=== PATIENT | male | born 1970 | race Caucasian/White ===

== ENCOUNTER 2021-12-28 15:21 | Emergency (ER) | payer MEDICAID, SELFPAY ==
[2021-12-28 15:22] VITALS: BP 113/80; PULSE 71; RESP 22; TEMP 36.6; BMI 22.5
--- NOTE | 2021-12-28 15:28 | EDS_ITS ---
HPI History of Present Illness Chief Complaint: Headache Detail of Chief Complaint: Headache with nausea and vomiting Informant: patient Onset/Context/Timing Onset: Yesterday Context: Sudden Onset Timing: Intermittent Quality: Bilateral headache with vomiting that started yesterday Location: [place] Current Severity: Gone Maximum Severity: Severe Worsened by: Vomiting and coughing Relieved by: Nothing specific Associated Symptoms Associated Symptoms: Nausea and vomiting with decreased appetite Narrative Narrative: Patient is a 51-year-old male present on no medications who presents with nausea and vomiting started last night. He headache is associated with nausea and vomiting. States the headache was severe last evening. He presently does not have a headache. He also developed a headache when he coughs. His cough is nonproductive. He denies fever, chills night sweats. He denies contact with anyone that is been ill. He denies double vision, blurred vision or loss of vision. Denies rhinorrhea, congestion postnasal drainage. Denies sore throat. He denies chest pain. He does admit to smoking. He denies alcohol use. He d enies black or maroon-colored stool. He denies orthostatic symptoms. Prior similar symptoms: No Recent Illness/Hospitalization: No PFSH PFSH Medical History no medical history no medical history Home Medications NK 12/28/21 [History Last Taken Unknown] Allergy/AdvReac Type Severity Reaction Status Date / Time No Known Allergies Allergy Verified 09/11/15 18:00 Social History (Updated 12/28/21 @ 15:[address] Juan Vieyra MD) household members: none Smoking Status: Current every day smoker tobacco type: cigarettes substance use type: does not use ROS ROS ED Constitutional Constitutional ED: Denies chills, fever(s), subjective, sweats or weight loss Eyes Eyes: Denies blurry vision, change in vision or diplopia ENT ENT ED: Denies ear pain, rhinorrhea or sore throat Cardiovascular Cardiovascular: Denies chest pain, orthopnea, palpitations, paroxysmal nocturnal dyspnea or racing heartbeat Respiratory/Chest Respiratory/Chest: Denies cough, dyspnea, dyspnea on exertion, orthopnea or paroxysmal nocturnal dyspnea Gastrointestinal Gastrointestinal: Reports nausea and vomiting; Denies abdominal pain, constipation, diarrhea or melena Genitourinary Genitourinary ED: Denies dysuria, hematuria or urinary frequency Musculoskeletal Musculoskeletal: Denies arthralgias, back pain, myalgias or neck pain Integumentary Denies abscess, Abrasions or rash Neurologic Neurologic: Reports headache(s); Denies paresthesias or weakness Endocrine Endocrinology: Denies cold intolerance, heat intolerance, polydipsia or polyphagia Hematologic/Lymphatic Hematologic/Lymphatic: Denies easy bruising or lymphadenopathy EXAM Physical Exam Const Vital Signs: 12/28/21 15:22 Temperature 97.8 F Temperature Source Oral Pulse Rate 71 Respiratory Rate 22 H Blood Pressure 113/80 Blood Pressure Mean 91 Oxygen Delivery Method Room Air Positive well developed and unkempt General Appearance ED: unkempt, well developed and NAD; Negative for cyanotic, diaphoretic or pallor HEENT Reports TM's clear and dry mucous membranes Negative for trauma or tenderness Tympanic Membrane ED: Yes TM's clear Mouth ED: Yes dry mucous membranes Mouth: dry mucous membranes Eyes PERRL and EOMs intact bilaterally General Eye ED: Negative for pale conjunctiva or scleral icterus Neck no lymphadenopathy, supple and no JVD Chest Wall inspection of chest normal and palpation of chest normal Resp normal respiratory effort and clear to auscultation bilaterally Cardio regular rate, regular rhythm, S1 normal heart sound, S2 normal heart sound and no murmurs GI normal to inspection, nondistended, normoactive bowel sounds, non-tender, non- distended and no masses; Negative for hepatosplenomegaly Back/Spine no CVA tenderness Cervical Spine: Negative for cervical spine tenderness Thoracic Spine / Upper Back: Negative for thoracic spinal tenderness Lumbar Spine / Lower Back: Negative for lumbar spinal tenderness Extremity normal to inspection Neuro oriented x3, CN's II-XII intact bilaterally and no sensory deficits noted Sensorium / Orientation: alert Motor Exam: strength 5/5 throughout Psych mental status grossly normal Appearance: unkempt Skin no rashes or lesions noted, no wounds and skin turgor normal Skin Narrative: Patient has abnormal appearing left heel compared to right due to prior calcaneal fracture. 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 General Skin Exam: Negative for jaundice or pallor Lesions: No lesion noted Trauma: Negative for abrasion MDM MDM MDM Narrative Medical decision making narrative: Suspect patient has viral illness with nausea vomiting. Clinically is dehydrated. IV was established and he will receive 1 L of normal saline. Zofran for his persistent nausea. BMP to assess electrolytes and renal function. Patient reports marked improvement. He would like to go home. Lab Data Attestation: I reviewed the patient's lab results. Lab results narrative: Basic metabolic panel is unremarkable. Urine is remarkable for ketones. There is also urobilinogen noted. There is no bilirubin. Microscopic is unremarkable. Labs: Laboratory Results - last 24 hr 12/28/21 12/28/21 15:40 17:25 Sodium 138 Potassium 4.0 Chloride 106 Carbon Dioxide 27.0 Anion Gap 5 BUN 11 Creatinine 0.89 Estim Creat Clear Calc 103.95 Est GFR (MDRD) Af Amer 116 Est GFR (MDRD) Non-Af 96 BUN/Creatinine Ratio 12.3 Glucose 95 Calcium 8.6 Urine Color Yellow Urine Clarity Clear Urine pH 7.0 Ur Specific [place] 1.010 Urine Protein 15 H Urine Glucose (UA) Normal Urine Ketones 15 H Urine Occult Blood Negative Urine Nitrite Negative Urine Bilirubin Negative Urine Urobilinogen 8 H Ur Leukocyte Esterase 25 H Urine RBC 0 SEEN Urine WBC 0-5 SEEN Ur Squamous Epith Cells 0 SEEN Urine Bacteria 0 SEEN Urine Mucus 0 SEEN Discharge Plan Triage Chief Complaint: Headache ED Provider: Juan Vieyra Dx/Rx/DC Orders Clinical Impression: Nausea & vomiting, Dehydration, moderate, Ketosis Instructions: ED Vomiting (Adult) Prescriptions: No Action NK Primary Care Provider: Care Physician,No Primary Referrals: Care Physician,No Primary [Primary Care Provider] - Doctor,Your [STAFF PHYSICIAN] - 3-5 Days if not improving Disposition Disposition: Home, Self Care
[2021-12-28] MEDS: 0.9% Normal Saline 1,000 ML 1000 ML IV ×2 (15:58→16:58)
[2021-12-28] MEDS: Ondansetron 4 MG/2 ML Vial IV (15:59)
[2021-12-28 16:04] LABS: Anion Gap 5 (5-15); BUN 11 mg/dL (7-18); BUN/Creat Ratio 12.3 RATIO (10-20); Calcium,Total 8.6 mg/dL (8.5-10.1); Chloride 106 mmol/L (98-107); Creatinine, Serum 0.89 mg/dL (0.70-1.30); EST Glomerular Filtration Rate 96 mL/min (>60); Est Glom Filt Rate - Afr Amer 116 mL/min (>60); Estimated Creatinine Clearance 103.95 ml/min; Glucose 95 mg/dL (74-106); Sodium Level 138 mmol/L (136-145)
[2021-12-28 17:36] LABS: Bacteria 0 SEEN /hpf (None Seen); Mucous, Urine 0 SEEN /hpf (<or=2+); Red Blood Cells-Urine 0 SEEN /hpf (0-5); Squamous Epithelial Cells - UA 0 SEEN /hpf (0-5)
[2021-12-28 17:42] LABS: Color, Urine Yellow (Yellow); Glucose, Dipstick Normal (Normal); Ketone-Dipstick 15 mg/dl (Negative); Leukocyte Esterase-Dipstick 25 /ul (Negative); Nitrite-Dipstick Negative (Negative); Occult Blood-Urine Negative /ul (Negative); Protein-Dipstick 15 mg/dl (Negative); Urine Bilirubin Dipstick Negative (Negative); Urine Clarity Clear (Clear); Urine Urobilinogen 8 mg/dl (Normal)
[2021-12-28 17:50] LABS: White Blood Cells 0-5 SEEN /hpf (0-5)
[2021-12-28] MEDS: Acetaminophen 325 MG Tablet 650 MG PO (17:57)
[2021-12-28 18:34] VITALS: BP 127/85; PULSE 69; RESP 18; O2SAT 97
== END 2021-12-28 18:36 | disposition home or self-care (01) ==
PROVIDERS: Emergency Provider Emergency Medicine; Visit Provider Emergency Medicine
DX: R11.2 Nausea with vomiting, unspecified (principal); E86.0 Dehydration; E87.2 Acidosis; R51.9 Headache, unspecified; R50.9 Fever, unspecified; F17.210 Nicotine dependence, cigarettes, uncomplicated; Z86.718 Personal history of other venous thrombosis and embolism
CPT/HCPCS: 80048; 81001; 96361; 96374; 99284; J7030; A4216; J2405